=== PATIENT | male | born 1950 | race Caucasian/White ===

== ENCOUNTER 2018-10-13 18:36 | Inpatient (IN) | payer MEDICARE, MEDICAID | END 2018-10-20 18:27 | disposition home or self-care (01) | LOC: SUR 3N 10-19 14:19 → ER 18:36 → ED HOLD 21:58 → ORTHO 4S 23:08 | DX: A41.9 Sepsis, unspecified organism (principal); J18.9 Pneumonia, unspecified organism; E43 Unspecified severe protein-calorie malnutrition; E87.1 Hypo-osmolality and hyponatremia; N17.9 Acute kidney failure, unspecified; F15.90 Other stimulant use, unspecified, uncomplicated ==